=== PATIENT | female | born 1970 | race Hispanic/Latino ===

== ENCOUNTER 2023-11-08 03:55 | Emergency (ER) | payer SELFPAY ==
[2023-11-08] MEDS ORDERED: KETOROLAC 30 MG/ML INJ ONE (04:25)
[2023-11-08 04:41] LABS: Absolute Eosinophils 0.1 K/uL (0-0.5); Absolute Lymphocytes (CBC) 1.7 K/uL (0.7-4.9); Absolute Monocytes 0.4 K/uL (0.1-1.3); Absolute Neutrophil 3.1 K/uL (1.8-8.0); Basophils % 0.7 % (0-1.3); Eosinophils % 2.1 % (0-4.4); Hematocrit 41.9 % (36.0-45.0); Lymphocytes % 32.4 % (15.3-44.8); MCH 27.9 pg (27.0-35.0); MCHC 33.4 g/dL (32.0-36.0); MCV 83.4 fL (80-100); MPV 8.1 fL (7.6-11.3); Monocytes % 7.5 % (3.3-12.3); Neutrophils % 57.3 % (41.7-73.7); Nucleated Red Blood Cells % 0.1 % (0-0); Platelets 298 thou/uL (152-406); RBC Red Blood Cell Count 5.02 M/uL (3.86-4.86); Red Cell Distribution Width 14.1 % (12.1-15.2)
[2023-11-08 04:53] LABS: Anion Gap 9.5 mEq/L (5.0-15.0); Potassium 3.5 mEq/L (3.5-5.1)
--- NOTE | 2023-11-08 05:22 | ER ---
Nurse's Notes [facility] Name: Jacy Latif Age: 53 yrs Sex: Female : 1970 Arrival Date: 11/08/2023 Time: 03:55 Bed 6 Private MD: Diagnosis: Headache;Viral infection, unspecified Presentation: 11/07 04:23 Chief complaint: Patient states: woke up feeling like I was choking now I am short of vc1 breath and have a headache. Coronavirus screen: Client denies travel out of the [place] in the last 14 days. At this time, the client does not indicate any symptoms associated with coronavirus-19. Ebola Screen: Patient negative for fever greater than or equal to 101.5 degrees Fahrenheit, and additional compatible Ebola Virus Disease symptoms Patient denies exposure to infectious person. Patient denies travel to an Ebola-affected area in the 21 days before illness onset. No symptoms or risks identified at this time. Initial Sepsis Screen: Does the patient meet any 2 criteria? No. Patient's initial sepsis screen is negative. Does the patient have a suspected source of infection? No. Patient's initial sepsis screen is negative. Risk Assessment: Do you want to hurt yourself or someone else? Patient reports no desire to harm self or others. Onset of symptoms was November 08, 2023 at 03:10. 04:23 Method Of Arrival: Ambulatory vc1 04:23 Acuity: RACQUEL 3 vc1 Triage Assessment: 04:28 General: Appears in no apparent distress. uncomfortable, well groomed, well developed, vc1 well nourished, Behavior is calm, cooperative, appropriate for age. Pain: Complains of pain in forehead Pain does not radiate. Pain currently is 5 out of 10 on a pain scale. Quality of pain is described as sharp, Pain began suddenly, 1 hour ago. Is continuous. EENT: No deficits noted. No signs and/or symptoms were reported regarding the EENT system. Neuro: Level of Consciousness is awake, alert, obeys commands, Oriented to person, place, time, situation, Appropriate for age Reports headache frontal area. Cardiovascular: Capillary refill < 3 seconds Patient's skin is warm and dry. Respiratory: Airway is patent Respiratory effort is even, unlabored, Respiratory pattern is regular, symmetrical. GI: Abdomen is round non-distended, Abd is soft and non tender Reports nausea. : No deficits noted. No signs and/or symptoms were reported regarding the genitourinary system. Derm: Skin is intact, is healthy with good turgor, Skin is dry, Skin is normal, Skin temperature is warm. Musculoskeletal: No deficits noted. No signs and/or symptoms reported regarding the musculoskeletal system. 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 - Infectious Disease History:: Denies. - Social history:: Smoking status: Patient denies any tobacco usage or history of. Screenin:27 [facility] ED Fall Risk Assessment (Adult) History of falling in the last 3 months, vc1 including since admission No falls in past 3 months (0 pts) Confusion or Disorientation No (0 pts) Intoxicated or Sedated No (0 pts) Impaired Gait No (0 pts) Mobility Assist Device Used No (0 pt) Altered Elimination No (0 pt) Score/Fall Risk Level 0 - 2 = Low Risk Oriented to surroundings, Maintained a safe environment, Educated pt \T\ family on fall prevention, incl call for assistance when getting out of bed. Abuse screen: Denies threats or abuse. Nutritional screening: No deficits noted. Tuberculosis screening: No symptoms or risk factors identified. Assessment: 04:29 General: Appears in no apparent distress. comfortable, well groomed, well developed, jh8 well nourished. Pain: Complains of pain in face. Neuro: Level of Consciousness is awake, alert, obeys commands, Oriented to person, place, time, situation, Appropriate for age. Cardiovascular: Patient's skin is warm and dry. Rhythm is sinus rhythm. Respiratory: Reports shortness of breath upon awakening, not sob at this time Airway is patent Trachea midline Respiratory effort is even, unlabored, Respiratory pattern is regular, symmetrical. GI: No deficits noted. Abdomen is round non-distended. : No deficits noted. Musculoskeletal: No deficits noted. Vital Signs: 04:23 BP 172 / 106; Pulse 84; Resp 18; Temp 97; Pulse Ox 98% ; Weight 98.88 kg (M); Height 5 vc1 ft. 6 in. ; Pain 5/10; 05:28 BP 172 / 106; Pulse 87; Resp 18; Pulse Ox 99% ; cp4 04:23 Body Mass Index 35.19 (98.88 kg, 167.64 cm) vc1 04:23 Pain Scale: Adult vc1 ED Course: 03:57 Patient arrived in ED. jj6 04:05 Bonifacio Ruth MD is Attending Physician. ec2 04:26 Triage completed. vc1 04:27 Arm band placed on right wrist. vc1 04:28 Patient has correct armband on for positive identification. Bed in low position. Call vc1 light in reach. Pulse ox on. NIBP on. 04:31 No provider procedures requiring assistance completed. Inserted saline lock: 20 gauge jh8 in right antecubital area, using aseptic technique. 05:03 XRAY Chest (1 view) In Process Unspecified. EDMS 05:27 Provided Education on: viral illness. cp4 05:27 intact, bleeding controlled, No redness/swelling at site. Pressure dressing applied. cp4 Administered Medications: 04:29 Drug: Ketorolac IVP 15 mg IVP once Route: IVP; Site: right antecubital; jh8 05:27 Follow up: Response: No adverse reaction; Pain is decreased cp4 Medication: 04:28 VIS not applicable for this client. vc1 Outcome: 05:22 Discharge ordered by . ec2 05:27 Discharged to home ambulatory, cp4 05:27 Condition: stable 05:27 Discharge instructions given to patient, Instructed on discharge instructions, follow up and referral plans. medication usage, Demonstrated understanding of instructions, follow-up care, medications, Prescriptions given X 1, 05:28 Patient left the ED. cp4 Signatures: Dispatcher [employer] EDMS Essie Peterson jj6 María Thomas, RN RN vc1 Bonifacio Ruth MD MD ec2 Selene Hall cp4 Thomas Blanco RN RN jh8
--- NOTE | 2023-11-08 05:22 | EDPHYS ---
Physician Documentation [facility] Name: Jacy Latif Age: 53 yrs Sex: Female : 1970 Arrival Date: 11/08/2023 Time: 03:55 Bed 6 Private MD: ED Physician Bonifacio Ruth HPI: 11/07 04:52 This 53 yrs old Female presents to ER via Ambulatory with complaints of ec2 Nausea, Shortness Of Breath, Headache. 04:52 Patient arrives today for evaluation of a headache and nausea. Patient reports that she ec2 woke up early this morning, felt short of breath which is since resolved. Patient reports no active difficulty breathing, denies any chest pain. Patient reports dull right-sided headache. Patient reports of associated nausea. No recent falls injuries or trauma.. 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 - Infectious Disease History:: Denies. - Social history:: Smoking status: Patient denies any tobacco usage or history of. ROS: 04:53 Constitutional: as per hpi ec2 Exam: 04:53 Constitutional: GEN: NAD Head: atraumatic Eyes: EOMI Ears: External ears are ec2 normal. CV: regular rate LUNGS: no respiratory distress ABD: non-distended SKIN: no evidence of rashes MSK: no evidence of trauma. Neuro: Cranial nerves II through XII intact, strength intact in all extremities. Vital Signs: 04:23 BP 172 / 106; Pulse 84; Resp 18; Temp 97; Pulse Ox 98% ; Weight 98.88 kg (M); Height 5 vc1 ft. 6 in. ; Pain 5/10; 05:28 BP 172 / 106; Pulse 87; Resp 18; Pulse Ox 99% ; cp4 04:23 Body Mass Index 35.19 (98.88 kg, 167.64 cm) vc1 04:23 Pain Scale: Adult vc1 MDM: 04:22 Patient medically screened. ec2 04:34 Data reviewed: vital signs. ED course: EKG independently reviewed and interpreted by ec2 me, shows normal sinus rhythm, rate of 75, no acute ST segment elevations, intervals are nonconcerning. . 04:53 ED course: Patient arrives today for evaluation of headache along with shortness of ec2 breath. Examination remarkable for well-appearing nontoxic dividual's otherwise in no acute distress with a reassuring examination. Will obtain lab work, chest x-ray. Differential includes migraine, doubt process such as subarachnoid. Additionally considered other process such as ACS, PE or dissection . 04:55 ED course: Metabolic profile reassuring. CBC reassuring. Pending chest x-ray. . ec2 04:55 ED course: After initial Toradol, patient reports marked improvement in her headache. ec2 Patient also reports complete resolution of her nausea. . 05:13 ED course: Chest x-ray independently reviewed and interpreted by me, shows no acute ec2 intrathoracic process. When compared to external records, appears similar.. 11/07 04:23 Order name: Basic Metabolic Panel; Complete Time: 04:55 ec2 11/07 04:23 Order name: CBC with Diff; Complete Time: 04:55 ec2 11/07 04:23 Order name: XRAY Chest (1 view) ec2 11/07 04:23 Order name: EKG; Complete Time: 04:23 ec2 11/07 04:23 Order name: Cardiac monitoring; Complete Time: 04:23 ec2 11/07 04:23 Order name: EKG - Nurse/Tech; Complete Time: 04:23 ec2 11/07 04:23 Order name: IV Saline Lock; Complete Time: 04:26 ec2 11/07 04:23 Order name: Labs collected and sent; Complete Time: 04:26 ec2 11/07 04:23 Order name: O2 Per Protocol; Complete Time: 04:23 ec2 11/07 04:23 Order name: O2 Sat Monitoring; Complete Time: 04:23 ec2 Administered Medications: 04:29 Drug: Ketorolac IVP 15 mg IVP once Route: IVP; Site: right antecubital; jh8 05:27 Follow up: Response: No adverse reaction; Pain is decreased cp4 Disposition Summary: 11/08/23 05:22 Discharge Ordered Notes: Location: Home ec2 Condition: Stable ec2 Diagnosis - Headache ec2 - Viral infection, unspecified ec2 Followup: ec2 - With: Private Physician - When: - Reason: Re-evaluation by your physician Discharge Instructions: - Discharge Summary Sheet ec2 - Viral Illness, Adult ec2 Forms: - Work release form vc1 - Medication Reconciliation Form ec2 - Antibiotic Education ec2 - Prescription Opioid Use ec2 - Patient Portal Instructions ec2 - Leadership Thank You Letter ec2 Prescriptions: - Compazine 10 mg Oral Tablet - take 1 tablet ORAL route every 8 hours As needed; 20 tablet; Refills: 0, ec2 Product Selection Permitted Signatures: Dispatcher [employer] EDMS María Thomas RN RN vc1 Bonifacio Ruth MD MD ec2 Thomas Blanco RN RN jh8 Selene Hall 4 Corrections: (The following items were deleted from the chart) 04:53 04:52 Patient arrives today for evaluation of a headache and nausea. Patient reports ec2 that she woke up early this morning, felt short of breath which is since resolved.. ec2
[2023-11-08 05:42] VITALS: BP 172/106; TEMP 97
[2023-11-08 05:54] VITALS: O2SAT 99
--- NOTE | 2023-11-08 07:02 | RAD REPORT ---
EXAM DESCRIPTION: RAD - Chest Single View - 11/08/2023 5:02 am CLINICAL HISTORY: COUGH COMPARISON: Chest Single View dated 01/22/2022; CHEST PA AND LAT 2 VIEW dated 05/18/2015Chest Single V iew dated 01/22/2022; CHEST PA AND LAT 2 VIEW dated 05/18/2015 FINDINGS: Lines: None. Lungs: No evidence of edema or pneumonia. Pleural: No significant pleural effusions or pneumothorax. Cardiac: The heart size is within normal limits. Mediastinum: Within normal limits. Bones: No acute fractures. Other: None IMPRESSION: No acute cardiopulmonary disease.
== END 2023-11-08 05:28 | disposition home or self-care (01) ==
LOC: ER 03:55
DX: R51.9 Headache, unspecified (principal); B34.9 Viral infection, unspecified
CPT/HCPCS: 36415; 71045; 80048; 85025; 93005; 96374; 99284

== ENCOUNTER 2024-06-23 10:51 | Emergency (ER) | payer SELFPAY ==
--- OUTSIDE RECORDS SUMMARY | 2024-06-23 10:55 | XMS REPORT | Continuity of Care Document ---
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
[2024-06-23 11:39] LABS: Absolute Eosinophils 0.1 K/uL (0-0.5); Absolute Lymphocytes (CBC) 1.5 K/uL (0.7-4.9); Absolute Monocytes 0.3 K/uL (0.1-1.3); Absolute Neutrophil 3.3 K/uL (1.8-8.0); Basophils % 0.9 % (0-1.3); Eosinophils % 1.3 % (0-4.4); Hematocrit 46.1 % (36.0-45.0); Hemoglobin 15.9 g/dL (12.0-15.0); Lymphocytes % 28.2 % (15.3-44.8); MCH 28.1 pg (27.0-35.0); MCHC 34.5 g/dL (32.0-36.0); MCV 81.4 fL (80-100); MPV 8.5 fL (7.6-11.3); Monocytes % 6.6 % (3.3-12.3); Nucleated Red Blood Cells % 0.1 % (0-0); Platelets 314 thou/uL (152-406); RBC Red Blood Cell Count 5.66 M/uL (3.86-4.86); Red Cell Distribution Width 13.5 % (12.1-15.2)
[2024-06-23 11:48] LABS: PT Prothrombin Time 11.4 SECONDS (10-13.0)
--- NOTE | 2024-06-23 11:48 | RAD REPORT ---
EXAMINATION: ONE VIEW CHEST XR CLINICAL INDICATION: HTN TECHNIQUE: Frontal chest projection is submitted. Examination is limited by patient positioning and t echnique. COMPARISON: 11/08/2023 FINDINGS: The lungs are well inflated and clear. The heart is upper limit of normal in size. No displaced fract ures identified. IMPRESSION: No acute intrathoracic abnormalities.
[2024-06-23 12:05] LABS: Anion Gap 8.7 mEq/L (5.0-15.0); BUN Blood Urea Nitrogen 12 mg/dL (7-18); Bicarbonate 27 mEq/L (21-32); Glomerular Filtration Rate 102 ml/min (=/>90); Glucose Level 102 mg/dL (74-106); NT PRO-BNP 49 pg/mL (<125); Potassium 3.7 mEq/L (3.5-5.1); Sodium Level 138 mEq/L (136-145)
[2024-06-23 12:10] LABS: Troponin High Sensitivity < 3.0 pg/mL (<58.9)
--- NOTE | 2024-06-23 12:38 | RAD REPORT ---
EXAM: CT brain without contrast HISTORY: GUERRERO, HTN COMPARISON: None TECHNIQUE: Multiple contiguous axial images were obtained and a CT of the brain without contrast. Sag ittal and coronal reformats were performed. One or more of the following dose reduction techniques were used: Automated exposure control, adjust ment of the mA and/or kV according to patient size, and/or iterative reconstruction. FINDINGS: No evidence of hydrocephalus, intracranial hemorrhage, or extra-axial fluid collection. The brain is normal in morphology. No evidence of midline shift or areas of brain edema. The calvarium is intact. The visualized paranasal sinuses and mastoid air cells are essentially clear . IMPRESSION: No evidence of acute intracranial abnormality.
--- NOTE | 2024-06-23 12:56 | RAD REPORT ---
EXAMINATION: CTA HEAD CLINICAL INDICATION: HEADACHE TECHNIQUE: Axial CT images were obtained through the head after intravenous contrast utilizing angiog raphic protocol with 3D post-processing (maximum intensity projection images, volume rendered images and/or shaded surface rendered images). One or more of the following dose reduction technique s were used: Automated exposure control, adjustment of the mA and/or kV according to patient size, and/or iterative reconstruction. Unless otherwise specified, incidental findings do not require dedic ated imaging follow-up. COMPARISON: Recent CT study FINDINGS: There is no evidence of large vessel occlusion. There is an abnormal collection of vessels along the left temporal region in the region of the insula and left temporal lobe. This likely represents large AV malformation. There is an additional abnormal collection of vessels seen with nidus measurin g 12 mm superior left temporal region. Basilar artery is patent. 4 flow is seen in both vertebral arteries, slightly greater on the right. 3D images confirm these findings. 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 Recommend traditional neuroangiography assessment for further workup.
--- NOTE | 2024-06-23 13:02 | RAD REPORT ---
EXAMINATION: CTA NECK CLINICAL INDICATION: HEADACHE TECHNIQUE: Axial CT images were obtained from the aortic arch to the skull base after intravenous con trast utilizing angiographic protocol with 3D post-processing (maximum intensity projection images, volume rendered images and/or shaded surface rendered images). One or more of the following dose redu ction techniques were used: Automated exposure control, adjustment of the mA and/or kV according to patient size, and/or iterative reconstruction. Unless otherwise specified, incidental findings do not require dedicated imaging follow-up. COMPARISON: No prior exam. FINDINGS: AORTA: The imaged aortic arch is normal. CCA: The common carotid arteries are patent and normal in caliber. ICA/ECA: Bilateral internal and external carotid arteries are patent. There is no significant interna l carotid artery stenosis. VERTEBRAL: The cervical vertebral arteries are patent. The vertebral arteries are codominant. SOFT TISSUE: No significant neck soft tissue abnormalities. The visualized lung apices are clear. 3D images confirm these findings. IMPRESSION: No significant flow abnormality of the neck vessels is identified. NASCET criteria used. Mild 0-49% stenosis Moderate 50-69% stenosis Severe 70-99% stenosis
--- NOTE | 2024-06-23 13:34 | ER ---
Nurse's Notes [facility] Name: Jacy Latif Age: 54 yrs Sex: Female : 1970 Arrival Date: 06/23/2024 Time: 10:51 Bed 7 Private MD: Diagnosis: Headache;Essential (primary) hypertension;Cerebral Ateriovenous malformation Presentation: 06/23 11:00 Chief complaint: Severe headache, hot flash, and heart racing upon waking at 0300, BP hb was 180/130, took one of her 's lisinopril, now the headache reduced to a 7/10 but still feels bad. Denies CP/dizziness/SOB/flu symptoms. Coronavirus screen: At this time, the client does not indicate any symptoms associated with coronavirus-19. Ebola Screen: No symptoms or risks identified at this time. Initial Sepsis Screen: Does the patient meet any 2 criteria? No. Patient's initial sepsis screen is negative. Does the patient have a suspected source of infection? No. Patient's initial sepsis screen is negative. Risk Assessment: Do you want to hurt yourself or someone else? Patient reports no desire to harm self or others. Onset of symptoms was June 23, 2024. 11:00 Method Of Arrival: Ambulatory hb 11:00 Acuity: RACQUEL 3 hb Historical: - Allergies: 11:05 Morphine; hb 11:05 PENICILLINS; hb - PMHx: 13:27 Cerebral AVM; ll1 - PSHx: 11:05 Cholecystectomy; tubal ligation; hb - Immunization history:: Adult Immunizations up to date. - Infectious Disease History:: Denies. - Social history:: Smoking status: Patient denies any tobacco usage or history of. - Family history:: not pertinent. - Hospitalizations: : No recent hospitalization is reported. Screenin:26 Abuse screen: Denies threats or abuse. Denies injuries from another. Nutritional ss screening: No deficits noted. Tuberculosis screening: Never had TB. Assessment: 12:20 General: Appears in no apparent distress. comfortable, Behavior is calm, cooperative, ss Denies fever. Pain: Denies pain. Neuro: Level of Consciousness is awake, alert, obeys commands, Oriented to person, place, time, situation, Moves all extremities. Full function Gait is steady, Speech is normal, Facial symmetry appears normal, Pupils are PERRLA. Respiratory: Airway is patent Respiratory effort is even, unlabored, Respiratory pattern is regular, symmetrical. GI: Patient currently denies diarrhea, nausea, vomiting. EENT: Nares are clear. Derm: Skin is intact, is healthy with good turgor, Skin is dry, Skin is pink, warm \T\ dry. normal. 12:26 Reassessment: Pt back from CT at this time. ss 13:30 Reassessment: Patient appears in no apparent distress at this time. Patient and/or ss family updated on plan of care and expected duration. Pain level reassessed. Patient is alert, oriented x 3, equal unlabored respirations, skin warm/dry/pink. Vital Signs: 11:00 BP 170 / 120; Pulse 77; Resp 16; Temp 98.6(O); Pulse Ox 100% on R/A; Weight 99.79 kg; hb Height 5 ft. 6 in. ; Pain 7/10; 13:30 BP 142 / 83; ss 11:00 Body Mass Index 35.51 (99.79 kg, 167.64 cm) hb 11:00 Pain Scale: Adult hb [place] Coma Score: 13:27 Eye Response: spontaneous(4). Motor Response: obeys commands(6). Verbal Response: rn oriented(5). Total: 15. ED Course: 10:54 Patient arrived in ED. im 10:55 Marcos Noe MD is Attending Physician. rn 11:04 Triage completed. hb 11:05 Risa Guy, RN is Primary Nurse. ss 11:05 Arm band placed on. hb 11:42 XRAY Chest (1 view) In Process Unspecified. EDMS 12:23 CT Head Brain wo Cont In Process Unspecified. EDMS 12:[address] In Process Unspecified. EDMS 12:[address] In Process Unspecified. EDMS 12:26 Patient has correct armband on for positive identification. Bed in low position. ss 13:49 No provider procedures requiring assistance completed. Patient did not have IV access ss during this emergency room visit. Administered Medications: No medications were administered Medication: 12:20 VIS not applicable for this client. ss Outcome: 13:34 Discharge ordered by . rn 13:49 Discharged to home ambulatory, ss 13:49 Condition: good 13:49 Discharge instructions given to patient, Instructed on discharge instructions, follow up and referral plans. medication usage, Demonstrated understanding of instructions, follow-up care, medications, Prescriptions given X 1, 13:49 Patient left the ED. ss Signatures: Dispatcher [employer] EDMS Marcos Noe MD MD rn Blanchard, Shelby, RN RN ss Nisreen Beltran RN RN Kofi Hutson RN RN ll1 Christen Aquino Corrections: (The following items were deleted from the chart) 11: 11:00 Acuity: RACQUEL 3 hb hb 11: 11:00 Chief complaint: Severe headache, hot flash, nd heart racing upon waking at 0300, hb took one of her 's blood pressure pills and the headache reduced to a 7/10 but still feels bad. hb 11: 11:00 Acuity: RACQUEL 2 hb hb
--- NOTE | 2024-06-23 13:34 | EDPHYS ---
Physician Documentation [facility] Name: Jacy Latif Age: 54 yrs Sex: Female : 1970 Arrival Date: 06/23/2024 Time: 10:51 Bed 7 Private MD: ED Physician Marcos Noe HPI: 06/23 12:28 This 54 yrs old Female presents to ER via Ambulatory with complaints of rn Headache, High Blood Pressure, Doesn't Feel Right. 12:29 The patient complains of pain to the Back of head. The patient describes the headache rn as aching, throbbing. Onset: The symptoms/episode began/occurred this morning. Severity of symptoms: At its worst the pain was moderate, in the emergency department the pain is unchanged. The symptoms are alleviated by nothing. the symptoms are aggravated by nothing. The patient has not experienced similar symptoms in the past. The patient has not recently seen a physician. Patient reports headache, throbbing, woke up with headache this morning very early. Patient reports blood pressure 200/100 and took her 's lisinopril. Headache improved a little bit to 7 out of 10. No focal neurological deficits. No vision changes. No speech changes. No fever or chills. No trauma. No family history of aneurysm or stroke. No chest pain or shortness of breath. Patient does report generalized malaise and fatigue. Also reports flushing. 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 - Infectious Disease History:: Denies. - Social history:: Smoking status: Patient denies any tobacco usage or history of. - Family history:: not pertinent. - Hospitalizations: : No recent hospitalization is reported. ROS: 12:29 Constitutional: Negative for fever, chills, and weight loss, Eyes: Negative for injury, rn pain, redness, and discharge, Neck: Negative for injury, pain, and swelling, Cardiovascular: Negative for chest pain, palpitations, and edema, Respiratory: Negative for shortness of breath, cough, wheezing, and pleuritic chest pain, Abdomen/GI: Negative for abdominal pain, nausea, vomiting, diarrhea, and constipation, MS/Extremity: Negative for injury and deformity, Neuro: Positive for headache, negative for focal weakness or numbness. No seizure. Exam: 12:29 Constitutional: This is a well developed, well nourished patient who is awake, alert, rn and in no acute distress. Jovial and nontoxic Head/Face: Normocephalic, atraumatic. Neck: No meningismus Cardiovascular: Regular rate and rhythm. No pulse deficits. Respiratory: No increased work of breathing, no retractions or nasal flaring. MS/ Extremity: Pulses equal, no cyanosis. Neuro: Awake and alert, GCS 15, oriented to person, place, time, and situation. Cranial nerves II-XII grossly intact. Motor strength 5/5 in all extremities. Sensory grossly intact. Cerebellar exam normal. Normal gait. 15:08 ECG was reviewed by the Attending Physician. rn Vital Signs: 11:00 BP 170 / 120; Pulse 77; Resp 16; Temp 98.6(O); Pulse Ox 100% on R/A; Weight 99.79 kg; hb Height 5 ft. 6 in. ; Pain 7/10; 13:30 BP 142 / 83; ss 11:00 Body Mass Index 35.51 (99.79 kg, 167.64 cm) hb 11:00 Pain Scale: Adult hb Melody Coma Score: 13:27 Eye Response: spontaneous(4). Motor Response: obeys commands(6). Verbal Response: rn oriented(5). Total: 15. MDM: 10:55 Medical Screening Exam initiated rn 13:27 Differential diagnosis: hypertensive headache, intracerebral hemorrhage, migraine, rn neoplasm, subarachnoid bleed, tension headache, trigeminal neuralgia, vasomotor headache. Data reviewed: vital signs, nurses notes, lab test result(s), EKG, radiologic studies, CT scan, and as a result, I will admit patient. Management of patient was discussed with the following: Airborne Operations: Discussed case with Dr. Mayers, recommends transfer to [place] for further evaluation and four-vessel angiogram.. Counseling: I had a detailed discussion with the patient and/or guardian regarding the historical points, exam findings, and any diagnostic results supporting the discharge/admit diagnosis, lab results, radiology results, the need for further work-up and treatment in the hospital, the need to transfer to another facility. 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 Patient reports she forgot to mention that she was diagnosed with this 25 years ago. Patient reports intermittent migraines but has never had high blood pressure problems. When I recommended transfer and discussed that the neurologist recommended transfer patient declines. Patient states would rather follow-up as she is feeling much better and blood pressure is down to 140/80. Patient is aware of this finding and risk if blood pressure surges could bleed or cause hydrocephalus or further problems. Patient chooses to go home. Will discharge home with antihypertensive and will monitor blood pressure at home.. 06/23 11:17 Order name: Basic Metabolic Panel; Complete Time: 12:18 rn 06/23 11:17 Order name: CBC with Diff; Complete Time: 12:18 rn 06/23 11:17 Order name: NT PRO-BNP; Complete Time: 12:18 rn 06/23 11:17 Order name: PT-INR; Complete Time: 12:18 rn 06/23 11:17 Order name: Troponin HS; Complete Time: 12: rn 06/23 11:17 Order name: CT Head Brain wo Cont; Complete Time: 13: rn 06/23 11:17 Order name: Head Angio CT; Complete Time: 13: rn 06/23 11:17 Order name: Neck Angio CT; Complete Time: 13: rn 06/23 11:17 Order name: XRAY Chest (1 view); Complete Time: 12:18 rn 06/23 11:17 Order name: EKG; Complete Time: : rn 06/23 11:17 Order name: Cardiac monitoring; Complete Time: 11: rn 06/23 11:17 Order name: EKG - Nurse/Tech; Complete Time: rn 06/23 11:17 Order name: IV Saline Lock; Complete Time: : rn 06/23 11:17 Order name: Labs collected and sent; Complete Time: : rn 06/23 11:17 Order name: O2 Per Protocol; Complete Time: rn 06/23 11:17 Order name: O2 Sat Monitoring; Complete Time: : rn EC:08 Rate is 80 beats/min. Rhythm is regular. QRS [place] is Normal. NE interval is normal. QRS rn interval is normal. QT interval is normal. No Q waves. T waves are Normal. No ST changes noted. Clinical impression: NSR w/ Non-specific ST/T Changes. Interpreted by me. Reviewed by me. Administered Medications: No medications were administered Disposition Summary: 06/23/24 13:34 Discharge Ordered Notes: Location: Home rn Problem: new rn Symptoms: have improved rn Condition: Stable rn Diagnosis - Headache rn - Essential (primary) hypertension rn - Cerebral Ateriovenous malformation rn Followup: rn - With: Private Physician - When: As needed - Reason: Recheck today's complaints, Re-evaluation by your physician Discharge Instructions: - Discharge Summary Sheet rn - Hypertension, Adult rn - Brain Arteriovenous Malformation, Adult rn - Managing Your Hypertension rn Forms: - Medication Reconciliation Form rn - Antibiotic e learning developer - Prescription Opioid Use rn - Patient Portal Instructions rn - Leadership Thank You Letter rn Prescriptions: - amlodipine 5 mg Oral tablet - take 1 tablet ORAL route daily; 30 tablet; Refills: 0, Product Selection rn Permitted Signatures: Dispatcher [employer] EDMarcos Garcia MD MD rn Baxter, Heather, RN RN hb Lewis, Lynsay RN RN ll1
[2024-06-23 14:00] VITALS: TEMP 98.6; O2SAT 100
[2024-06-23 14:01] VITALS: BP 142/83
--- NOTE | 2024-06-24 13:25 | EKG ---
Test Date: 2024-06-23 Test Time: 11:18:40 [employer] Microarchitect: MIKAEL MEASUREMENT RESULTS: Intervals: Rate: 80 VA: 144 QRSD: 72 QT: 374 QTc: 431 [place]: P: 32 VA: 144 QRS: -21 T: 38 INTERPRETIVE STATEMENTS: Normal sinus rhythm Minimal voltage criteria for LVH, may be normal variant Septal infarct, age undetermined Abnormal ECG Compared to ECG 11/08/2023 04:22:53 Left ventricular hypertrophy now present Myocardial infarct finding now present Electronically Signed On 06-24-24 13:19:10 CDT by Edilson Chu
== END 2024-06-23 13:49 | disposition home or self-care (01) ==
LOC: ER 10:51
DX: R51.9 Headache, unspecified (principal); I10 Essential (primary) hypertension; Q28.2 Arteriovenous malformation of cerebral vessels
CPT/HCPCS: 36415; 70450; 70496; 70498; 71045; 80048; 83880; 84484; 85025; 85610; 93005; 99283; Q9967